=== PATIENT | male | born 1955 | race Hispanic/Latino ===

== ENCOUNTER 2020-12-10 11:25 | Observation (INO) | payer OTHER, MEDICARE, MEDICAID, SELFPAY ==
[2020-12-10] VITALS (15 sets, daily range): BP systolic 141–174; BP diastolic 64–75; PULSE 63–79; RESP 12–18; TEMP 36.3–36.8; O2SAT 96–100; BMI 23.9
--- NOTE | ~2020-12-10 | XR_ITS ---
EXAMINATION: XR chest 1V DATE: 12/10/2020 12:01 INDICATION: Dizziness. TECHNIQUE: A single frontal view of the chest was obtained. COMPARISON: None. FINDINGS: The chest demonstrates clear lungs without pneumonia, pleural effusion, or pneumothorax. Th e heart size is normal. There is an old healed fracture of left clavicle. Surgical clips in the right upper quadrant are likely from cholecystectomy. IMPRESSION: 1. No acute cardiopulmonary disease. Reviewed, dictated and finalized at location B.
--- NOTE | ~2020-12-10 | CT_ITS ---
EXAMINATION: CT brain wo con DATE: 12/10/2020 11:57 INDICATION: Dizziness TECHNIQUE: Computed tomography (CT) of the head was performed without intravenous contrast. The mA wa s adjusted according to patient size. Iterative reconstruction technique was employed. Exam dose: 60 5.33 mGy-cm total exam DLP. COMPARISON: None FINDINGS: Bilateral carotid siphon internal carotid artery calcifications and bilateral vertebral art elvis calcifications. There is nonspecific diminished attenuation of the subcortical and periventricular cerebral white mat ter, likely due to chronic small vessel ischemic changes. Chronic lacunar infarcts of left thalamus, right basal ganglia, right periventricular area. No intracranial mass lesion or hemorrhage. No midline shift or mass effect. There is central and cortical cerebral and cerebellar volume loss. No subdural or epidural hematoma. No fracture or bone destruction of the cranial vault is detected. There is opacification of a small number of left mastoid air cells. The mastoid air cells and include d paranasal sinuses are otherwise unremarkable. IMPRESSION: Cerebral atherosclerosis and chronic small vessel ischemic changes of the cerebral white matter Chronic lacunar infarcts of right periventricular area, right basal ganglia and left thalamus Moderate cerebral and cerebellar volume loss No acute intracranial finding Reviewed, dictated and finalized at Location A. Reviewed, dictated and finalized at location A.
--- NOTE | ~2020-12-10 | MR_ITS ---
EXAMINATION: MR brain/brain stem wo con DATE: 12/11/2020 14:18 INDICATION: Stroke. TECHNIQUE: Magnetic resonance imaging (MRI) of the brain and brainstem was performed without intraven ous contrast. Sequences included sagittal and axial T1-weighted FSE, axial diffusion-weighted FS EPI, axial T2*-weighted GRE, axial T2-weighted FLAIR Propeller, and axial T2-weighted Propeller. Apparent diffusion coefficient (ADC) maps were created. COMPARISON: Head CT 12/10/2020 FINDINGS: There is chronic encephalomalacia involving the right basal ganglia and posterior limb righ t internal capsule with old blood products. There is chronic cystic encephalomalacia in the right fro ntal lobe deep white matter. There is an old lacunar infarct in left thalamus. There are scattered ar eas of nonspecific increased T2-weighted signal intensity in the cerebral white matter. There is no i ntracranial hemorrhage, acute infarction, or abnormal intracranial mass lesion. The ventricles are no rmal in size. There is mild mucosal thickening in the ethmoid sinuses. The orbits are normal. There a re small mastoid effusions, left worse than right. The orbits are normal. IMPRESSION: 1. Chronic encephalomalacia involving the right basal ganglia, posterior limb right internal capsule, right frontal lobe deep white matter, and left thalamus. 2. Moderate nonspecific cerebral white matter disease, which likely represents chronic small vessel i schemic disease. Reviewed, dictated and finalized at location B. IMPRESSION: 1. Chronic encephalomalacia involving the right basal ganglia, posterior limb r ight internal capsule, right frontal lobe deep white matter, and left thalamus. 2. Moderate nonspecific cerebral white matter disease, which likely represents chronic small vessel ischemic disease.
--- NOTE | ~2020-12-10 | US_ITS ---
EXAMINATION: US carotid duplex BI DATE: 12/10/2020 14:36 INDICATION: Infarct of the right basal ganglia. TECHNIQUE: Grayscale, color Doppler, and pulsed Doppler images of the cervical carotid arteries were obtained. The degree of vessel stenosis is placed in one of the following categories: normal, <50%, 5 0-69%, >=70% but less than near-occlusion, near-occlusion, or total occlusion. Note that percent sten osis relative to normal distal artery lumen diameter is indirectly measured from velocity measurement s as described by Danny, et al. Radiology 2003; 229:340-346. COMPARISON: None. FINDINGS: RIGHT: The right common carotid artery (CCA) peak systolic velocity (PSV) is 93 cm/s. The right internal car otid artery (ICA) PSV is 69 cm/s. The right ICA end-diastolic velocity (EDV) is 12 cm/s. The right IC A/CCA PSV ratio is 0.8. Grayscale and color Doppler images yield an estimate of <50% diameter reducti on from plaque in the ICA. There is antegrade flow in the right vertebral artery. LEFT: The left CCA PSV is 103 cm/s. The left ICA PSV is 79 cm/s. The left ICA EDV is 15 cm/s. The left ICA/ CCA PSV ratio is 0.8. Grayscale and color Doppler images yield an estimate of <50% diameter reduction from plaque in the ICA. There is antegrade flow in the left vertebral artery. IMPRESSION: 1. <50% stenosis in the right internal carotid artery. 2. <50% stenosis in the left internal carotid artery. Reviewed, dictated and finalized at location B.
--- NOTE | 2020-12-10 11:34 | ECG_ITS ---
Measurements Intervals [place] Rate: 65 P: 50 NH: 188 QRS: 15 QRSD: 89 T: 52 QT: 429 QTc: 449 Interpretive Statements SINUS RHYTHM BASELINE ARTIFACT- I, II, III NORMAL ECG Electronically Signed On 12-10-2020 11:38:44 CDT by Joshua Veronica D.O.
--- NOTE | 2020-12-10 11:40 | ED.GENADULT ---
HPI - General Adult General Chief complaint: Neuro Symptoms/Deficit Stated complaint: vision loss/hearing loss Source: patient History of Present Illness HPI narrative: Patient is a 65 y/o male complaining of moderate dizziness, left eye blurred vision and decreased hearing on left side since approximately 8:00 AM yesterday. There is no known alleviating or exacerbating factor. He denies any headache. He has chronic left sided weakness due to previous stroke. Related Data Allergies Allergy/AdvReac Type Severity Reaction Status Date / Time esomeprazole [From Nexium] AdvReac Unknown Verified 12/10/20 16:07 Review of Systems Constitutional: Constitutional: Denies chills, Denies fever(s), Denies headache(s) and Reports weakness Eyes: Eyes: Reports blurry vision ENT: Denies headache(s) and Denies neck pain Cardiovascular: Cardiovascular: Denies chest pain and Denies dyspnea Respiratory: Respiratory: Denies cough and Denies dyspnea Gastrointestinal: Gastrointestinal: Denies abdominal pain, Denies diarrhea, Denies nausea and Denies vomiting Genitourinary: Genitourinary: Denies hematuria and Denies dysuria Musculoskeletal: Musculoskeletal: Denies back pain and Denies neck pain Neurologic: Reports dizziness, Denies headache(s) and Reports weakness PMFSH Family History Family History (Updated 12/10/20 @ 15:59 by Anthony James RN) Father Throat cancer Mother Kidney cysts Sibling Kidney cysts Sibling Kidney cysts Social History Social History Years smoked: 40 Smoking status: Former smoker Alcohol intake: former Drinks per week: 1 Substance use: never Gender identity (if verbalized by the patient): Male Spiritual care concerns: No Exam Const: General: no acute distress and well developed Orientation/consciousness: oriented to person, oriented to place, oriented to time and patient oriented x3 HENMT: Head: normocephalic Ears: external ears normal General nose exam: Normal external nose present Eyes: General: appearance normal, both eyes and all related structures Conjunctivae: conjunctivae normal Neck: Neck: normal visual inspection and full ROM Chest: Chest palpation & inspection: normal inspection of the chest and no tenderness Resp: Effort & Inspection: normal respiratory effort Auscultation: clear to auscultation bilaterally Cardio: Rate: regular rate Rhythm: regular rhythm GI: GI Palp: No abdominal tenderness and Yes Soft to palpation Skin: General skin exam: normal color and turgor normal Neuro: General: oriented to person, oriented to place, oriented to time and patient oriented x3 Cognition (Neuro): normal cognition Motor exam (neuro): Other motor observations present (left hemiparesis) Extrem: General: normal to inspection, full ROM and no pedal edema Psych: Appearance: grossly normal Mental Status: mental status grossly normal Affect: normal affect Course Consultations Consultation #1: Discussed with ENVIRONMENTAL PROTECTION GEOLOGIST Chiqui, who agrees to admit. She also recommends neurology consult. Date: 12/10/20 Time: 13:47 Consultation #2: Discussed with Dr. Freedman, who agrees to consult. Date: 12/10/20 Time: 12:58 Vital Signs Vital signs: Vital Signs Temperature 36.4 C 12/10/20 11:41 Pulse Rate 64 12/10/20 11:41 Respiratory Rate 14 12/10/20 11:41 Blood Pressure 154/73 H 12/10/20 11:41 Pulse Oximetry 99 12/10/20 11:41 Temperature 36.3 C L 12/10/20 16:00 Pulse Rate 72 12/10/20 16:00 Respiratory Rate 18 12/10/20 16:00 Blood Pressure 174/74 H 12/10/20 16:00 Pulse Oximetry 100 12/10/20 16:00 Medical Decision Making MDM Narrative Medical decision making narrative: Patient presents with dizziness, blurred vision. Stroke is considered. However, he is not a candidate for tPA because LKW is greater than 4.5 hours and Coumadin therapy. Vital Signs Vital Signs: Vital Signs Temperature 36.4 C 12/10
--- NOTE | 2020-12-10 12:11 | PC.NURSE ---
Pt. unable to urinate at this time. Pt. advised we will use straight catheter. Pt. is refusing straight catheter stating he cannot handle it well. Pt. is AOx4. ERP aware and is ok without collecting urine at this time. Pt. advised when call when they need to urinate so staff can assist patient with a urinal.
[2020-12-10 12:35] LABS: Basophils Absolute Auto 0.1 K/mm3 (0.0-0.1); Eosinophils Absolute Auto 0.5 K/mm3 (0-0.3); Eosinophils Percent Auto 6.9 % (0-4.4); Hematocrit 29.5 % (42.0-52.0); Hemoglobin 9.4 g/dL (14.0-18.0); Immature Granulocyte Absolute 0.04 K/mm3 (0.00-0.031); Immature Granulocyte Percent A 0.5 % (0-0.5); Lymphocytes Percent Auto 12.7 % (18.3-44.2); Mean Corpuscular HGB Conc 31.9 g/dl (32-36); Mean Corpuscular Hemoglobin 28.2 pg (26-34); Mean Corpuscular Volume 88.6 fl (80-100); Mean Platelet Volume 10.3 fl (7.4-10.4); Monocytes Absolute Auto 0.9 K/mm3 (0.1-0.6); Monocytes Percent Auto 11.4 % (2.6-8.5); Neutrophils Absolute Auto 5.3 K/mm3 (1.3-6.7); Neutrophils Percent Auto 67.5 % (45.5-73.1); Platelet Count Result 210 k/mm3 (150-375); Red Blood Count 3.33 M/mm3 (4.6-6.20); Red Cell Distribution Width 13.7 % (11.5-14.5); White Blood Count 7.9 K/mm3 (4.5-10.0)
[2020-12-10 12:45] LABS: INR 3.5; Prothrombin Time 35.5 Seconds (11.1-14.7)
[2020-12-10 12:46] LABS: Partial Thromboplastin Time 58.7 SECONDS (22.3-36.8)
[2020-12-10 12:47] LABS: Alanine Aminotransferase 14 U/L (4-50); Albumin Level 3.9 g/dL (3.5-5.1); Alkaline Phosphatase 66 U/L (38-126); Anion Gap 9 mmol/L (8-16); Aspartate Amino Transferase 20 U/L (17-59); Bilirubin,Total 0.2 mg/dL (0.2-1.3); Blood Urea Nitrogen 56 mg/dL (9-20); Calcium 8.3 mg/dL (8.4-10.2); Carbon Dioxide 28 mmol/L (22-30); Chloride 98 mmol/L (98-107); Estimated CRCL calculation 15 ml/min; Estimated Glomerular Filt Rate 12; Glucose 119 mg/dL (75-110); Sodium 135 mmol/L (137-145)
[2020-12-10 14:50] LABS: Add Urine Microscopic? YES; Appearance Urine Clear (Clear); Bilirubin Urine Negative (Negative); Blood Urine Negative (Negative); Color Urine Yellow (Yellow); Glucose Urine UA 1+ mg/dL (Negative); Ketones Urine Negative (Negative); Leukocyte Esterase Ur Negative LEU/UL (Negative); Nitrate Urine Negative (Negative); Protein Urine 3+ mg/dL (Negative); RBC Urine 0-2 /hpf (0-2); Specific Grav Ur 1.009 (1.001-1.035); Squamous Epithelial Cell Urine Rare /hpf (Few); Urobilinogen Urine Negative mg/dL (<2.0); WBC Urine 0-3 /hpf
--- NOTE | 2020-12-10 15:56 | ADMGEN ---
This patient, Tre Werner, was admitted to 3 [facility] Surg Room 331-01. Patient/family oriented to hospital policies and general routines including ID bracelet, bed and alarms, visiting hours, pain management, procedures, bathroom and other care routines, personal items, smoking policy, room service/diet, and visiting hours. Information on how to activate the Rapid Response Team has been discussed. Patient/Family are encouraged to report perceived risks to care and to ask questions if they do not understand what they are told or what they should do.
--- NOTE | 2020-12-10 23:21 | PM.IMHP ---
H&P: HPI History of Present Illness Date/Time: 12/10/20 23:21 Chief Complaint: left sided blurriness of vision Narrative: Patient is a 65 y/o male complaining of moderate dizziness, left eye blurred vision and decreased hearing on left side since approximately 8:00 AM yesterday. There is no known alleviating or exacerbating factor. He denies any headache. He has chronic left sided weakness due to previous stroke. cain from 2008 and 2009 with left sided weakness, had been to nursing home home at [place]. he has been wheelchair bound since few years now. he recenlty was admitteed to [facility] with another stroke and went to [facility] since then. he noticed icnreased dizziness and left sided eye blurriness and hearing since 2 days now. All other 12 point ros is negative except for the ones present above. Review of Systems Review of Systems: Narrative: - CONSTITUTIONAL: Denies weight loss, fever and chills. - HEENT: reports changes in vision and hearing - RESPIRATORY: Denies SOB and cough. - CV: Denies palpitations and CP. - GI: Denies abdominal pain, nausea, vomiting and diarrhea. - : Denies dysuria and urinary frequency. - MSK: Denies myalgia and joint pain. - SKIN: Denies rash and pruritus. - NEUROLOGICAL: Denies headache and syncope. - PSYCHIATRIC: Denies recent changes in mood. Denies anxiety and depression. All systems reviewed & are unremarkable except as noted in HPI and below Constitutional: Constitutional: Reports fatigue and Reports weakness Neurologic: Reports weakness Endocrine: Endocrine: Reports fatigue [facility] Family History Family History (Updated 12/10/20 @ 15:59 by Anthony James RN) Father Throat cancer Mother Kidney cysts Sibling Kidney cysts Sibling Kidney cysts Social History Social History Years smoked: 40 Smoking status: Former smoker Alcohol intake: former Drinks per week: 1 Substance use: never Gender identity (if verbalized by the patient): Male Spiritual care concerns: No Meds Home Medications and Allergies Home Medications Medication Instructions Recorded Confirmed Type Thera M 1 tab-cap PO DAILY 12/10/20 12/10/20 History amlodipine 10 mg PO DAILY 12/10/20 12/10/20 History ascorbic acid (vitamin C) 500 mg PO DAILY 12/10/20 12/10/20 History aspirin [Adult Aspirin EC Low 81 mg PO DAILY 12/10/20 12/10/20 History Strength] atorvastatin 80 mg PO HS 12/10/20 12/10/20 History bisacodyl 10 mg RECTAL DAILY PRN 12/10/20 12/10/20 History calcitriol See Rx Instructions .ROUTE .COMPLEX 12/10/20 12/10/20 History carvedilol 25 mg PO BID 12/10/20 12/10/20 History doxazosin 4 mg PO HS 12/10/20 12/10/20 History duloxetine 20 mg PO BID 12/10/20 12/10/20 History ferrous sulfate 325 mg PO DAILY 12/10/20 12/10/20 History furosemide 80 mg PO BID 12/10/20 12/10/20 History gabapentin 100 mg PO TID 12/10/20 12/10/20 History hydralazine 75 mg PO TID 12/10/20 12/10/20 History lidocaine 1 patch TOPICAL DAILY PRN 12/10/20 12/10/20 History magnesium citrate [Citroma] 300 ml PO DAILY PRN 12/10/20 12/10/20 History magnesium hydroxide [Milk of 30 ml PO HS PRN 12/10/20 12/10/20 History Magnesia] pantoprazole 40 mg PO DAILY 12/10/20 12/10/20 History potassium chloride 10 meq PO EVERY OTHER DAY 12/10/20 12/10/20 History sodium phosphates [Fleet Enema] 1 ml RECTAL DAILY PRN 12/10/20 12/10/20 History thiamine HCl (vitamin B1) 100 mg PO DAILY 12/10/20 12/10/20 History warfarin 5 mg PO DAILY 12/10/20 12/10/20 History Allergies Allergy/AdvReac Type Severity Reaction Status Date / Time esomeprazole [From Nexium] AdvReac Unknown Verified 12/10/20 16:07 Vital Signs Vital Signs - 24 hr 12/10/20 11:41 12/10/20 13:31 12/10/20 13:33 Temperature 97.6 F Pulse Rate 64 68 68 Respiratory Rate 14 15 12 Blood Pressure 154/73 H 144/70 H Pulse Oximetry 99 98 12/10/20 13:45 12/10/20 13:46 12/10/20
[2020-12-11] VITALS (13 sets, daily range): BP systolic 129–139; BP diastolic 60–63; PULSE 65–82; RESP 16–18; TEMP 36.5–37.1; O2SAT 93–97; BMI 23.9
[2020-12-11 00:12] LABS: INR 3.8; Prothrombin Time 38.2 Seconds (11.1-14.7)
[2020-12-11] MEDS: ATORVASTATIN 40 MG TABLET 80 MG PO ×2 (01:06→21:56)
[2020-12-11] MEDS: carvediloL 25 MG TABLET PO ×3 (01:06→21:56)
[2020-12-11] MEDS: DULoxetine HCL 20 MG CAPSULE.DR PO ×3 (01:07→21:56)
[2020-12-11] MEDS: GABAPENTIN 100 MG CAPSULE PO ×4 (01:07→18:03)
--- NOTE | 2020-12-11 06:00 | ECHO_ITS ---
Patient Info Name: Tre Werner Age: 65 years : 1955 Gender: Male Ht: 72 in Wt: 176 lbs BSA: 2.02 m2 HR: 67 bpm BP: 131 / 63 mmHg Heart Rhythm: Sinus Rhythm Technical Quality: Fair Exam Date: 12/11/2020 10:53 AM Exam Location: [facility] Pulmonary Patient Status: Inpatient Admit Date: 12/10/2020 Staff Ordering Physician: Tracy Duggan MD Trainmaster: Lizet Mathis RDCS Attending Provider: Anne Sutton MD Referring Physician: Urban GODINEZ; Exam Type: CA echo doppler color flow Study Info Indications - stroke Complete two-dimensional, color flow and Doppler transthoracic echocardiogram is performed. Summary 1. Complete two-dimensional, color flow and Doppler transthoracic echocardiogram is performed. 2. Left ventricular chamber dimension is normal. 3. Left ventricular systolic function is normal, estimated at 60-65%. 4. There is mildly increased left ventricular wall thickness. 5. The left ventricular diastolic function is grade I diastolic dysfunction. 6. Left atrial chamber dimension is mildly enlarged. 7. There is mild mitral valve regurgitation. 8. There is mild tricuspid valve regurgitation. Left Ventricle Left ventricular chamber dimension is normal. Left ventricular systolic function is normal, estimated at 60-65%. There is mildly increased left ventricular wall thickness. The left ventricular diastolic function is grade I diastolic dysfunction. Right Ventricle Right ventricular chamber dimension is normal. Right ventricular systolic function is normal. Left Atria Left atrial chamber dimension is mildly enlarged. Right Atria Right atrial chamber dimension is normal. Atrial Septum Intact interatrial septum visualized by color flow imaging. Aortic Valve The aortic valve is trileaflet. There is mild aortic valve sclerosis. There is no aortic valve stenosis. There is trace aortic valve regurgitation. Pulmonic Valve The pulmonic valve is normal. There is no pulmonic valve stenosis. There is trace pulmonic regurgitation. Mitral Valve The mitral valve has normal leaflets. There is no mitral valve stenosis. There is mild mitral valve regurgitation. Tricuspid Valve The tricuspid valve leaflets are normal. There is no significant tricuspid valve stenosis. There is mild tricuspid valve regurgitation. No pulmonary hypertension, estimated pulmonary arterial systolic pressure is 18 mmHg. Pericardium/Pleural The pericardium appears normal. There is small pericardial effusion. Inferior Vena Cava Normal inferior vena cava with <50% collapse upon inspiration consistent with elevated right atrial pressure, 10 mmHg. Aorta The aortic root size at the sinus of Valsalva is normal. The prox ascending aorta size is normal. There is mild aortic atherosclerosis. Left Ventricular Outflow Tract Name Value Normal LVOT 2D LVOT Diameter 2.0 cm LVOT Doppler LVOT Peak Gradient 6 mmHg LVOT Mean Gradient 3 mmHg LVOT VTI 28 cm LVOT VTI/AV VTI Ratio
[2020-12-11 08:55] LABS: Hematocrit 26.5 % (42.0-52.0); Hemoglobin 8.8 g/dL (14.0-18.0); Mean Corpuscular HGB Conc 33.2 g/dl (32-36); Mean Corpuscular Hemoglobin 28.9 pg (26-34); Mean Corpuscular Volume 86.9 fl (80-100); Mean Platelet Volume 10.3 fl (7.4-10.4); Platelet Count Result 189 k/mm3 (150-375); Red Blood Count 3.05 M/mm3 (4.6-6.20); Red Cell Distribution Width 13.8 % (11.5-14.5); White Blood Count 6.4 K/mm3 (4.5-10.0)
[2020-12-11 09:04] LABS: INR 3.6; Prothrombin Time 36.2 Seconds (11.1-14.7)
[2020-12-11 09:05] LABS: Albumin Level 3.3 g/dL (3.5-5.1); Anion Gap 7 mmol/L (8-16); Blood Urea Nitrogen 52 mg/dL (9-20); Calcium 7.9 mg/dL (8.4-10.2); Carbon Dioxide 28 mmol/L (22-30); Chloride 103 mmol/L (98-107); Estimated CRCL calculation 17 ml/min; Estimated Glomerular Filt Rate 14; Glucose 105 mg/dL (75-110); Phosphorus 5.8 mg/dL (2.5-4.5); Potassium 3.7 mmol/L (3.4-5.0); Sodium 138 mmol/L (137-145)
[2020-12-11] MEDS: hydrALAZINE HCL 25 MG TABLET 75 MG PO ×3 (09:14→18:04)
[2020-12-11] MEDS: PANTOPRAZOLE 40 MG TABLET PO (09:15)
[2020-12-11] MEDS: FERROUS SULFATE 324 MG TABLET PO (09:15)
[2020-12-11] MEDS: ASPIRIN 81 MG ENTERIC TABLET PO (09:15)
[2020-12-11] MEDS: amLODIPine BESYLATE 5 MG TABLET 10 MG PO (09:15)
[2020-12-11] MEDS: THIAMINE HCL 100 MG TABLET PO (09:15)
[2020-12-11] MEDS: POTASSIUM CHLORIDE 10 MEQ TABLET PO (09:16)
[2020-12-11] MEDS: ASCORBIC ACID 500 MG TABLET PO (09:17)
[2020-12-11] MEDS: MULTIVITAMINS THERAPEUTIC TAB (*BKC) 1 TABLET PO (09:17)
[2020-12-11] MEDS: FUROSEMIDE 80 MG TABLET PO ×2 (09:17→18:05)
--- NOTE | 2020-12-11 09:55 | PCOTNOTE ---
Attempted OT evaluation, despite education on benefits of participating with therapy patient adamantly refused therapy at this time reporting just leave me alone . will follow and attempt at later time, RN notified
--- NOTE | 2020-12-11 11:50 | WPDNEURCNPN ---
Assessment and Plan Assessment and plan (1) Stroke: Code(s): I63.9 - Cerebral infarction, unspecified Status: Acute Additional Plan 65 years old with right hemispheric pre-existent stroke and complain of blurriness of vision, carotid ultrasound is unrewarding, will benefit from the MRI to document any changes before any further studies are recommended Consult date: 12/11/20 Time Seen: 11:00 HPI: Tre Werner is a 65 year old male admitted to the hospital for the complaints of blurriness of the vision on the left side in addition to the dizziness and also decreased hearing on the left side without associated headache patient does have ongoing history of chronic left-sided weakness from the previous stroke in 2008 and 2009 with residual left hemiparesis he is a wheelchair bound, does have ongoing history of he has smoked 40, former drinker and taking multiple medications, evaluation up until now revealed normal BMP with BUN of 52 creatinine of 4.3 GFR only 14 calcium 7.9 with phosphorus 5.8 APTT 36.2 UA with protein urea and glycosuria, CT of the head documented chronic small-vessel ischemic changes of the white matter with chronic lacunar infarct of the right periventricular area and right basal ganglia and left thalamus in addition to moderate cerebral and cerebellar volume loss negative x-ray chest Doppler study with less than 50% stenosis bilaterally and echocardiogram pending Review of Systems Review of Systems: All systems reviewed & are unremarkable except as noted in HPI and below PMFSH Family History Family History Father Throat cancer Mother Kidney cysts Sibling Kidney cysts Sibling Kidney cysts Social History Social History Years smoked: 40 Smoking status: Former smoker Alcohol intake: former Drinks per week: 1 Substance use: never Gender identity (if verbalized by the patient): Male Spiritual care concerns: No Meds Home Medications and Allergies Home Medications Medication Instructions Recorded Confirmed Type Thera M 1 tab-cap PO DAILY 12/10/20 12/10/20 History amlodipine 10 mg PO DAILY 12/10/20 12/10/20 History ascorbic acid (vitamin C) 500 mg PO DAILY 12/10/20 12/10/20 History aspirin [Adult Aspirin EC Low 81 mg PO DAILY 12/10/20 12/10/20 History Strength] atorvastatin 80 mg PO HS 12/10/20 12/10/20 History bisacodyl 10 mg RECTAL DAILY PRN 12/10/20 12/10/20 History calcitriol See Rx Instructions .ROUTE .COMPLEX 12/10/20 12/10/20 History carvedilol 25 mg PO BID 12/10/20 12/10/20 History doxazosin 4 mg PO HS 12/10/20 12/10/20 History duloxetine 20 mg PO BID 12/10/20 12/10/20 History ferrous sulfate 325 mg PO DAILY 12/10/20 12/10/20 History furosemide 80 mg PO BID 12/10/20 12/10/20 History gabapentin 100 mg PO TID 12/10/20 12/10/20 History hydralazine 75 mg PO TID 12/10/20 12/10/20 History lidocaine 1 patch TOPICAL DAILY PRN 12/10/20 12/10/20 History magnesium citrate [Citroma] 300 ml PO DAILY PRN 12/10/20 12/10/20 History magnesium hydroxide [Milk of 30 ml PO HS PRN 12/10/20 12/10/20 History Magnesia] pantoprazole 40 mg PO DAILY 12/10/20 12/10/20 History potassium chloride 10 meq PO EVERY OTHER DAY 12/10/20 12/10/20 History sodium phosphates [Fleet Enema] 1 ml RECTAL DAILY PRN 12/10/20 12/10/20 History thiamine HCl (vitamin B1) 100 mg PO DAILY 12/10/20 12/10/20 History warfarin 5 mg PO DAILY 12/10/20 12/10/20 History Allergies Allergy/AdvReac Type Severity Reaction Status Date / Time esomeprazole [From Nexium] AdvReac Unknown Verified 12/10/20 16:07 Vital Signs Vital Signs - 24 hr 12/10/20 13:31 12/10/20 13:33 12/10/20 13:45 Temperature Pulse Rate 68 68 63 Respiratory Rate 15 12 12 Blood Pressure 144/70 H Pulse Oximetry 98 99 12/10/20 13:46 12/10/20 14:01 12/10/20 14:03 Temperature Pulse Rate 63 66 66 Respiratory Rate 13 14 12 Blood Pressure 1
--- NOTE | 2020-12-11 12:29 | PCOTNOTE ---
Attempted OT evaluation. Patient declined evaluation at this time. Will continue to attempt.
--- NOTE | 2020-12-11 13:29 | PCPTNOTE ---
Attempted PT evaluation. Pt refusing evaluation at this time. Will follow. COLBY RamosT
--- NOTE | 2020-12-11 15:06 | PM.IMPN ---
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 Chronic encephalomalacia involving the right basal ganglia, posterior limb right internal capsule, right frontal lobe deep white matter, and left thalamus. 2. Moderate nonspecific cerebral white matter disease, which likely represents chronic small vessel ischemic disease. And patient also had cardiac echo which was essentially normal, patient creatinine is quite elevated this is patient 1st visit to the hospital we do know the baseline creatinine for the patient and patient is a poor historian we have requested medical record from his [place] and will review the lab further recommendation to follow, will continue to monitor the patient will have a PT OT evaluate the patient patient will benefit from rehab (2) CKD (chronic kidney disease): Qualifiers: Chronic kidney disease stage: unspecified stage Qualified Code(s): N18.9 - Chronic kidney disease, unspecified Code(s): N18.9 - Chronic kidney disease, unspecified Status: Acute Assessment and Plan: Patient creatinine is elevated to 5 we do know the baseline for the patient, we have requested medical record from his hospital will review and further recommendation to (3) Blurred vision, left eye: Code(s): H53.8 - Other visual disturbances Status: Acute Assessment and Plan: Plan is above (4) Stroke: Code(s): I63.9 - Cerebral infarction, unspecified Status: Acute Assessment and Plan: Patient with recurrent stroke patient is on warfarin and aspirin, INR supratherapeutic will hold warfarin and monitor (5) HTN (hypertension): Code(s): I10 - Essential (primary) hypertension Status: Acute Assessment and Plan: Will continue home regimen and monitor permissively (6) Hyperlipidemia: Code(s): E78.5 - Hyperlipidemia, unspecified Status: Acute Assessment and Plan: Will continue started Additional Plan # left sided weakness and dizziness; worsening symptoms. new stroke vs recrudescence of his old storke, vs possilbity of seizure from his old stroke area. will get mri brain to rule out any new stroke. caroid us is negative. echo is ordered. continue aspirin and warfarin. inr 3.5. ct head with no new strokes noted. # HTN: home medications # CHronic kidney dsiease stage IV cr 5. unknown baseline. but has seen nephroloist in the past. makes urine # HLP: home meds # hx of strokes with left sided weakness # wheelchair bound/non ambulatory # chronic anticoaguation # DVT proph: on coumadin. inr supratherapeutic. monitor inr daily. 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 Chronic encephalomalacia involving the right basal ganglia, posterior limb right internal capsule, right frontal lobe deep white matter, and left thalamus. 2. Moderate nonspecific cerebral white matter disease, which likely represents chronic small vessel ischemic disease. And patient also had cardiac echo which was essentially normal, patient creatinine is quite elevated this is patient 1st visit to
[2020-12-11] MEDS: DOXAZOSIN MESYLATE 4 MG TABLET PO (21:56)
[2020-12-12] VITALS (7 sets, daily range): BP systolic 126–133; BP diastolic 61–62; PULSE 69–78; RESP 16–18; TEMP 36.6–36.8; O2SAT 95–99
[2020-12-12 00:39] LABS: INR 3.2; Prothrombin Time 33.3 Seconds (11.1-14.7)
[2020-12-12 06:18] LABS: Hematocrit 24.9 % (42.0-52.0); Hemoglobin 8.3 g/dL (14.0-18.0); Mean Corpuscular HGB Conc 33.3 g/dl (32-36); Mean Corpuscular Hemoglobin 28.6 pg (26-34); Mean Corpuscular Volume 85.9 fl (80-100); Mean Platelet Volume 10.7 fl (7.4-10.4); Platelet Count Result 202 k/mm3 (150-375); Red Cell Distribution Width 13.6 % (11.5-14.5); White Blood Count 7.2 K/mm3 (4.5-10.0)
[2020-12-12 06:27] LABS: INR 3.2; Prothrombin Time 33.2 Seconds (11.1-14.7)
[2020-12-12 06:29] LABS: Albumin Level 3.1 g/dL (3.5-5.1); Anion Gap 6 mmol/L (8-16); Blood Urea Nitrogen 58 mg/dL (9-20); Calcium 7.8 mg/dL (8.4-10.2); Carbon Dioxide 28 mmol/L (22-30); Chloride 103 mmol/L (98-107); Estimated CRCL calculation 17 ml/min; Estimated Glomerular Filt Rate 14; Glucose 118 mg/dL (75-110); Phosphorus 4.6 mg/dL (2.5-4.5); Potassium 3.4 mmol/L (3.4-5.0); Sodium 137 mmol/L (137-145)
--- NOTE | 2020-12-12 08:52 | PCPTNOTE ---
Attempted PT eval. Pt refused therapy. States I don't want any therapy. Explained purpose of ntherapy and pt still reused.
[2020-12-12] MEDS: amLODIPine BESYLATE 5 MG TABLET 10 MG PO (09:24)
[2020-12-12] MEDS: ASCORBIC ACID 500 MG TABLET PO (09:25)
[2020-12-12] MEDS: hydrALAZINE HCL 25 MG TABLET 75 MG PO ×2 (09:25→13:36)
[2020-12-12] MEDS: MULTIVITAMINS THERAPEUTIC TAB (*BKC) 1 TABLET PO (09:25)
[2020-12-12] MEDS: calcitrioL 0.25 MCG CAPSULE BY MOUTH (09:25)
[2020-12-12] MEDS: FERROUS SULFATE 324 MG TABLET PO (09:25)
[2020-12-12] MEDS: ASPIRIN 81 MG ENTERIC TABLET PO (09:26)
[2020-12-12] MEDS: FUROSEMIDE 80 MG TABLET PO (09:26)
[2020-12-12] MEDS: DULoxetine HCL 20 MG CAPSULE.DR PO (09:26)
[2020-12-12] MEDS: carvediloL 25 MG TABLET PO (09:26)
[2020-12-12] MEDS: THIAMINE HCL 100 MG TABLET PO (09:26)
[2020-12-12] MEDS: PANTOPRAZOLE 40 MG TABLET PO (09:26)
[2020-12-12] MEDS: GABAPENTIN 100 MG CAPSULE PO ×2 (09:26→13:36)
--- NOTE | 2020-12-12 10:04 | PCPTNOTE ---
Spoke w/ Dr Ocasio regarding pt's multiple refusals. Agreed w/ DC PT.
--- NOTE | 2020-12-12 10:27 | PM.DS ---
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 Chronic encephalomalacia involving the right basal ganglia, posterior limb right internal capsule, right frontal lobe deep white matter, and left thalamus. 2. Moderate nonspecific cerebral white matter disease, which likely represents chronic small vessel ischemic disease. And patient also had cardiac echo which was essentially normal, patient creatinine is quite elevated this is patient 1st visit to the hospital we do know the baseline creatinine for the patient and patient is a poor historian we have requested medical record from his [place] and will review the lab further recommendation to follow, will continue to monitor the patient will have a PT OT evaluate the patient patient will benefit from rehab (2) CKD (chronic kidney disease): Qualifiers: Chronic kidney disease stage: unspecified stage Qualified Code(s): N18.9 - Chronic kidney disease, unspecified Code(s): N18.9 - Chronic kidney disease, unspecified Status: Acute Assessment and Plan: Patient creatinine is elevated to 5 we do know the baseline for the patient, we have requested medical record from his hospital will review and further recommendation to (3) Blurred vision, left eye: Code(s): H53.8 - Other visual disturbances Status: Acute Assessment and Plan: Plan is above (4) Stroke: Code(s): I63.9 - Cerebral infarction, unspecified Status: Acute Assessment and Plan: Patient with recurrent stroke patient is on warfarin and aspirin, INR supratherapeutic will hold warfarin and monitor (5) HTN (hypertension): Code(s): I10 - Essential (primary) hypertension Status: Acute Assessment and Plan: Will continue home regimen and monitor permissively (6) Hyperlipidemia: Code(s): E78.5 - Hyperlipidemia, unspecified Status: Acute Assessment and Plan: Will continue started DS: Summary Hospital Course Reason for hospitalization: Chief Complaint: left sided blurriness of vision Narrative: Patient is a 65 y/o male complaining of moderate dizziness, left eye blurred vision and decreased hearing on left side since approximately 8:00 AM yesterday. There is no known alleviating or exacerbating factor. He denies any headache. He has chronic left sided weakness due to previous stroke. storkes from 2008 and 2009 with left sided weakness, had been to custodial home at [facility]. he has been wheelchair bound since few years now. he recenlty was admitteed to [facility] with another stroke and went to the [facility] since then. he noticed icnreased dizziness and left sided eye blurriness and hearing since 2 days now. 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 Chronic encephalomalacia involving the right basal ganglia, posterior limb right internal capsule, right frontal lobe deep white matter, and left thalamus. 2. Moderate nonspecific cerebral white matter disease, whic
== END 2020-12-12 16:35 ==
LOC: ANHED 12:59 → ANH3MEDSUR 15:46
PROVIDERS: Internal Medicine; Admitting Provider Hospitalist; Emergency Provider Emergency Medicine; PCP Family Medicine; Visit Provider Family Medicine
DX: R42 Dizziness and giddiness (principal); H53.8 Other visual disturbances; I69.354 Hemiplegia and hemiparesis following cerebral infarction affecting left non-dominant side; I12.9 Hypertensive chronic kidney disease with stage 1 through stage 4 chronic kidney disease, or unspecified chronic kidney disease; N18.4 Chronic kidney disease, stage 4 (severe); G93.89 Other specified disorders of brain; E78.5 Hyperlipidemia, unspecified; Z79.01 Long term (current) use of anticoagulants; Z87.891 Personal history of nicotine dependence
CPT/HCPCS: 36415; 70450; 70551; 71045; 80053; 80069; 81001; 85025; 85027; 85610; 85730; 93005; 93306; 93880; 99285; A9270; G0378